=== PATIENT | female | born 1960 | race Two or more races ===

== ENCOUNTER 2017-08-07 17:47 | Emergency (ER) | payer OTHER ==
[~2017-08-07] VITALS: Ht 160 cm; Wt 81.6 kg
[2017-08-07] MEDS ORDERED: Solu-MEDROL 125mg Inj IVP ONE (18:00)
[2017-08-07] MEDS: Ipratropium 0.02% Inh Soln 2.5ml UD HHN SCH ×2 (18:06→18:07)
[2017-08-07] MEDS: Albuterol ud Inhalation HHN SCH ×2 (18:06→18:07)
--- NOTE | 2017-08-07 18:33 | Emergency Room Report ---
History of Present Illness General Chief Complaint: Asthma Source: Patient Present Illness HPI 57-year-old female with history of asthma, p/w SOB for 2 days. Also with fever chills runny nose and nonproductive cough Denies chest pain. Does not have a nebulizer or albuterol inhaler at home. Pt states that this episode is similar to other episodes of asthma exacerbation. Denies sick contacts or recent travel. Patient denies history of ICU admissions, intubations, or usage of BIPAP for asthma. Denies history of PE/DVT, no recent surgeries, prolonged immobilization, malignancy, or use of OCPs/HRT. Allergies: Coded Allergies: No Known Allergies (Unverified , 08/07/17) Patient History Past Medical History: see triage record Past Surgical History: none Pertinent Family History: none Reviewed Nursing Documentation: PMH: Agreed, PSxH: Agreed Nursing Documentation-PMH Past Medical History: No History, Except For Hx Asthma: Yes Review of Systems All Other Systems: negative except mentioned in HPI Physical Exam Vital Signs Date Time Temp Pulse Resp B/P (MAP) Pulse Ox O2 Delivery O2 Flow Rate FiO2 08/07/17 17:55 97.0 75 20 136/82 99 Room Air 08/07/17 18:08 21.0 08/07/17 18:08 21 Sp02 EP Interpretation: reviewed, normal General Appearance: alert, GCS 15, non-toxic, mild distress Head: normocephalic, atraumatic Eyes: bilateral eye normal inspection, bilateral eye PERRL, bilateral eye EOMI ENT: normal ENT inspection, normal pharynx, normal voice, moist mucus membranes Neck: normal inspection, full range of motion, supple Respiratory: respiratory distress, speaking full sentences, wheezing, expiration, chest symmetrical Cardiovascular #1: normal inspection, regular rate, rhythm, normal capillary refill Cardiovascular #2: 2+ radial (R), 2+ radial (L) Gastrointestinal: normal inspection, normal bowel sounds, non tender, soft Musculoskeletal: normal inspection, back normal, normal range of motion, non- tender Neurologic: normal inspection, alert, oriented x3, responsive, motor strength/ tone normal, sensory intact, normal gait, speech normal Psychiatric: normal inspection, judgement/insight normal, memory normal Skin: normal inspection, normal color, no rash, warm/dry, well hydrated, normal turgor Medical Decision Making Diagnostic Impression: Primary Impression: Asthma Additional Impression: Flu-like symptoms ER Course 57-year-old female with history of asthma p/w SOB DDX: Asthma exacerbation, pneumonia, upper respiratory infection/viral syndrome Plan: Combivent nebulizer treatment x 3, steroids, EKG, CXR ER Course: Patient has been treated with combivent x 3, steroids, antibiotics. CXR reveals no acute infiltrate Patient's overall respiratory status has improved in ED. Patient states improvement of symptoms. Patient continues to speak in complete sentences and is not in respiratory distress. Repeat lung auscultation: good air entry with minimal/no wheezing. Repeat VS reveals normal RR and SpO2. Disposition: Patient will be discharged to home with course of steroids and Tamiflu. Patient is instructed to use albuterol inhaler as needed. Strict precautions are discussed with patient on when to emergently return to the ED including: persistent or worsening SOB, chest pain, fever, chills, which could indicate severe illness. Patient verbalized understanding. Patient is to follow up with her/his PMD within 5 days. Patient agrees with plan. Please note that this Emergency Department Report was dictated using [employer] helper technology software, occasionally this can lead to erroneous entry secondary to interpretation by the dictation equipment. Chest X-ray CXR: Ordered: Yes 1 view Indication: SOB EP interpretation: Yes Interpretation: No consolidation, no effusion, no PTX, no acute cardiopulmonary disease Impression: No acute disease Electronically signed by Nick Resendez MD Last Vital Signs Date Time Temp Pulse Resp B/P (MAP) Pulse Ox O2 Delivery O2 Flow Rate FiO2 08/07/17 18:21 71 28 96 Room Air 21 08/07/17 18:08 21.0 08/07/17 17:55 97.0 136/82 Disposition: HOME, SELF-CARE Condition: Improved Scripts Oseltamivir Phosphate (Tamiflu) 75 Mg Capsule 75 MG ORAL TWICE A DAY for 5 Days, #10 CAP 0 Refills Prov: Nick [email or web address] 08/07/17 Nebulizer (Compact Compressor Nebulizer) 1 Each Each [facility], #1 Prov: Nick [email or web address] 08/07/17 Albuterol Sulfate* (ALBUTEROL SULFATE HHN*) 2.5 Mg/3 Ml Vial.neb 2.5 MG HHN Q4H Y for Shortness of Breath, #25 VIAL Prov: Nick Resendez M.D. 08/07/17 Albuterol Sulfate* (ALBUTEROL SULFATE MDI*) 8.5 Gm Hfa.aer.ad 2 PUFF INH Q4H Y for cough/wheezing, #1 EA 0 Refills Prov: Nick Resendez M.D. 08/07/17 Prednisone* (PREDNISONE*) 20 Mg Tablet 40 MG ORAL DAILY for 5 Days, #10 TAB 0 Refills Prov: Nick Resendez M.D. 08/07/17 Patient Instructions: Asthma, Adult, Upper Respiratory Infection, Adult, Easy- to-Read Nick Resendez M.D. Aug 07, 2017 18:33
[2017-08-07] MEDS ORDERED: COMPACT COMPRE1 EACH MC (19:12)
[2017-08-07] MEDS ORDERED: TAMIFLU75 MG ORAL (19:12)
[2017-08-07] MEDS ORDERED: PREDNISONE20 MG ORAL (19:12)
[2017-08-07] MEDS ORDERED: ALBUTEROL2.5 MG/3 M HHN (19:12)
[2017-08-07] MEDS ORDERED: ALBUTEROL SULF8.5 GM INH (19:12)
[2017-08-07 19:39] VITALS: BP 136/82
--- NOTE | 2017-08-08 08:59 | Diagnostic Imaging Report ---
Indication: Shortness of breath Technique: One view of the chest Comparison: none Findings: No acute infiltrates, effusions, or congestion. Tortuous calcified aorta. Normal heart size. Upper mediastinum unremarkable. Impression: No acute process.
== END 2017-08-07 19:50 | disposition home or self-care (01) ==
LOC: EMR 18:00
DX: J45.909 Unspecified asthma, uncomplicated (principal); J11.1 Influenza due to unidentified influenza virus with other respiratory manifestations
CPT/HCPCS: 71045; 94640; 94664; 99284; J7512